=== PATIENT | male | born 1930 | race Asian ===

== ENCOUNTER 2016-07-02 06:36 | Inpatient (IN) | payer OTHER, MEDICAID ==
[2016-07-02 08:03] VITALS: BP 179/73
[2016-07-02] MEDS ORDERED: Pneumococcal Vaccine 0.5 mL Vial IM ONE (08:51)
[2016-07-02] MEDS ORDERED: Hydrocodone/APAP 10 mg/325 mg Tab PO PRN (10:23)
[2016-07-02] MEDS ORDERED: Maalox 30 mL Cup PO PRN (10:23)
[2016-07-02] MEDS ORDERED: Hydrocodone/APAP 5mg/325mg Tab PO PRN (10:23)
[2016-07-02] MEDS ORDERED: Magnesium Hydroxide (MOM) 30 mL UDC PO PRN (10:23)
[2016-07-02 11:08] LABS: % BASOPHILS 0.2 % (0.0-2.0); % EOSINOPHILS 0.2 % (0.0-5.0); % LYMPHOCYTES 17.2 % (20.0-50.0); % MONOCYTES 2.1 % (2.0-10.0); % NEUTROPHILS 80.3 % (40.0-80.0); HEMATOCRIT 28.6 % (39.0-49.0); HEMOGLOBIN 9.2 gm/dL (12.6-17.4); MEAN CELL VOLUME 91.5 fl (80-99); MEAN CORPUSCULAR HEMOGLOBIN 29.5 pg (27.0-31.0); MEAN CORPUSCULAR HGB CONC 32.3 pg (28.0-36.0); PLATELET COUNT 174 Th/cmm (150-400); RED BLOOD COUNT 3.13 Mil/cmm (3.80-5.80); RED CELL DISTRIBUTION WIDTH 13.9 % (11.5-20.0); WHITE BLOOD COUNT 4.9 Th/cmm (4.8-10.8)
[2016-07-02 11:24] LABS: TROP I 0.02 ng/mL (0.01-0.05)
[2016-07-02 11:25] LABS: ALB/GLOB RATIO 1.1 (1.0-1.8); ALKALINE PHOSPHATASE 59 U/L (34-104); ANION GAP 9.9 (7.0-16.0); BILIRUBIN,TOTAL 0.5 mg/dL (0.3-1.0); BUN - UREA NITROGEN 34 mg/dL (7-25); BUN/CREATININE RATIO 13.6; CALCIUM SERUM 9.2 mg/dL (8.6-10.3); CARBON DIOXIDE 22.2 mEq/L (21.0-31.0); CHLORIDE 107 mEq/L (98-107); CREATININE - SERUM 2.5 mg/dL (0.7-1.3); GLUCOSE 141 mg/dL (70-105); POTASSIUM SERUM 4.1 mEq/L (3.5-5.1); SGOT 23 U/L (13-39); SGPT/ALT 19 U/L (7-52); SODIUM SERUM 135 mEq/L (136-145)
[2016-07-02 11:39] LABS: INR 1.32 (0.5-1.4); PROTHROMBIN TIME (TEST) 13.9 SECONDS (9.5-11.5)
--- NOTE | 2016-07-02 12:34 | Diagnostic Imaging Report ---
Renal ultrasound HISTORY: Acute renal failure. COMPARISON: None Technique: Sonography of the kidneys and urinary bladder was performed in multiple planes. FINDINGS: Exam is limited due to body habitus. The right kidney measures 9.9 x 5.1 cm. A 2.6 cm mid pole renal cyst is noted. No hydronephrosis. The left kidney measures 9.0 x 5.0 cm. Two Renal cysts are noted the largest at the upper pole measuring 2.1 cm. No hydronephrosis. There is mild increased echogenicity of both kidneys. Elevated postvoid residual bladder volume of 226 mL cyst is noted. The urinary bladder wall is borderline prominent measuring 4 mm. The prostate gland measures 4.9 x 3.7 x 3.8 cm. IMPRESSION: No evidence of hydronephrosis. Bilateral renal cysts. Mild increased echogenicity of both kidneys which may reflect underlying medical renal disease. Elevated postvoid residual bladder volume of 226 mL, clinical correlation recommended Mild generalized prominence of the urinary bladder wall. Please correlate with clinical findings. Mildly prominent prostate gland. Please correlate with clinical findings and PSA levels.
--- NOTE | 2016-07-02 12:51 | History & Physical ---
CHIEF COMPLAINT: Headache. HISTORY OF PRESENT ILLNESS: The patient is an 85-year-old male who presents to the ER at [facility] in [place]. Per patient's daughter, the patient started having headache yesterday and is unsure. The patient stated he has headaches since March. His pain is located at the back of his head . [place] PAST MEDICAL HISTORY: Dyslipidemia and hypertension. PAST SURGICAL HISTORY: Negative. ALLERGIES: No known allergies. REVIEW OF SYSTEMS: See history of present illness. PHYSICAL EXAMINATION: GENERAL: The patient is awake and oriented to person, place and time. The patient appeared well developed and well nourished. HEENT: Normocephalic, atraumatic. Extraocular movements intact. Pupils reactive to light. Oropharynx is clear. NECK: Supple. No thyromegaly. No lymphadenopathy. CARDIOVASCULAR: S1, S2. No murmurs, rubs, gallops. RESPIRATORY: Clear. No wheezes or rhonchi. GASTROINTESTINAL: Abdomen soft, nontender, nondistended. Bowel sounds positive. GENITOURINARY: No CVA tenderness. No suprapubic tenderness. BACK: No midline tenderness. EXTREMITIES: Equal pulses bilaterally. No cyanosis, clubbing. SKIN: Negative. PSYCHIATRIC: Negative. NEUROLOGIC: Cranial nerves 2-12 intact. Extraocular movements intact. Sensation intact. Neurovascular intact. Gross muscle strength in bilateral upper extremities is normal. LABORATORY DATA: Performed at [facility] as follows: CBC: WBC of 8.2, hemoglobin 10.1, hematocrit per labs, platelet count of 168. Chemistry: Sodium 132, potassium 4.3, chloride 102, bicarbonate 22, anion gap of 6, BUN 31, creatinine 2.52, GFR 25, glucose 99. CT head performed at [facility] showed no intracranial hemorrhage, mass or mass effect. No extraaxial or intraaxial fluid collection present. 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 There is no CT evidence of acute cortical infarct. The patient had lumbar puncture performed at [facility], which was unremarkable. IMPRESSION: 1. Altered mental status. 2. Acute renal failure. 3. Hypertension. 4. Dyslipidemia. 5. Chronic anticoagulation therapy. 6. Anemia. PLAN: The patient admitted to telemetry unit, seen by Dr. Khanh Naylor. We will obtain labs and consultation needed. [facility]# [id number] MTDNathan
[2016-07-02 13:57] LABS: C-REACTIVE PROTEIN < 0.2 mg/dL (0.0-0.9)
[2016-07-02] MEDS: Ferrous Sulfate 325 MG TAB PO SCH (16:17)
--- NOTE | 2016-07-02 16:58 | Consultation ---
REFERRING PHYSICIAN: Dr. Khanh Naylor. HISTORY OF PRESENT ILLNESS: This patient is seen on courtesy of Dr. Khanh Naylor as the patient is coming with bradycardia and cardiac murmur history and also having uncontrolled hypertension. According to the history obtained from the chart and from the patient, the patient was admitted to [facility] with worsening of the headache. The patient states that he has been having headache since March, but it was supposed to be off and on and now on the day of admission, it got worse. Denies of any blurring of vision. No nausea or vomiting. No weakness on any part of the body. He said that headache starts from the back and it spreads all over both sides of the head. He denies of any chest pain, cold sweats, loss of consciousness. No fever, chills or rigors. No recent history of upper respiratory tract infection or flu. He is in [place] and the further workup was initiated, which consists of the CT head, which did not show any bleed, but there are some changes present could be expected for age. PAST MEDICAL HISTORY: History of hypertension and dyslipidemia. PAST SURGICAL HISTORY: Nothing contributory. REVIEW OF SYSTEMS: Nothing contributory except as mentioned above from cardiac point of view. ALLERGIES: No known drug allergies. MEDICATIONS: I do not have the list of his home medications, I am not sure, cannot get any history of that. However, it is most likely per [facility] record that he has been on amlodipine 5 mg p.o. daily, atenolol 100 mg p.o. daily, lisinopril 30 mg, I do not think this is 30 mg, should be 20 or 40 mg, allopurinol 100 mg daily and warfarin 5 mg daily. It is not very clear why he takes warfarin. PERSONAL HISTORY: He is nonsmoker, nonalcoholic, no drug abuse. PHYSICAL EXAMINATION: GENERAL: The patient is an 85-year-old male, who is not in acute distress, not a good historian with conversation. There is not much alertness in the orientation. VITAL SIGNS: Reported as blood pressure is uncontrolled into 172/62 to 179/73 range, temperature is normal, heart rate is 59 and respiratory rate is 18, O2 sat is 97%. HEENT: Normal. NECK: Supple. JVP is flat. Thyroid not palpable. The carotids are equally palpable. No bruit. Trachea is central. LUNGS: Bilateral good air entry and clear. No rhonchi. CARDIOVASCULAR: PMI not palpable. Heart sounds, S1 is soft and S2 is soft. There is a systolic ejection murmur, which is 3/6 grade in aortic area conducting towards the carotids, towards apex. There is diastolic soft murmur is present and best audible in aortic area in left sternal border. There is hollow systolic murmur is present in mitral area conducting towards the axilla. No rub is appreciated. ABDOMEN: Normal. CENTRAL NERVOUS SYSTEM: Grossly normal. EXTREMITIES: No edema. Peripheral pulses are slightly decreased, but equal bilaterally, looks like 1+. EKG shows sinus bradycardia in 50s. No acute changes present. There is acute most likely rather poor R wave progress or Q waves in the lead III and aVF suggestive of old inferior infarction. IMPRESSION: Bradycardia most likely iatrogenic or secondary to increasing intracranial pressure to be evaluated further, although LP was normal and also there is no other abnormal finding of the CT head to suggest any acute infarction or bleed. Possible transient ischemic attack. Hypertension, uncontrolled, hypertensive heart disease, cardiac murmur, suggestive of aortic stenosis and aortic regurgitation and also mitral regurgitation, possible cardiomyopathy most likely diastolic as well as systolic dysfunction. 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 Cardiac murmurs suggestive of aortic stenosis with regurgitation,mitral valve regurgitation. Possible pulmonary hypertension. Has dyslipidemia, hypertension, hypertensive heart disease, altered level of consciousness, headache, etiology undetermined at this time and has mild azotemia, renal as well as prerenal type and he has mild anemia. His other medical problem as mentioned above. PLAN: From cardiac point of view, we would like to keep his heart rate normal range as well as bring the blood pressure under control. In view of that, I would like to reduce the atenolol to 50 mg and increase amlodipine to 10 mg to control hypertension. Also, we will add other therapy, which is not going to cause conduction abnormality or bradycardia like hydralazine and will be careful with KATHERINE inhibitors in view of having azotemia, increased BUN and creatinine. We will get fluid balance. This patient may be dehydrated and causing the azotemia. We will get IV fluids and follow closely for fluid overload or CHF. Further workup and management from cardiac point of view as needed. We will get the echocardiogram and serial EKG and also like to run troponin to make sure there is no coronary event recently or on this admission. Thank you very much Dr. Garcia for your kind referral and I will follow along with you during his acute cardiac problem. JOB# [id number] MTDD
--- NOTE | 2016-07-03 02:40 | Admit Criteria Form ---
Admit Criteria Forms - Admit Criteria Diagnosis: MENTAL STATUS CHANGE Clinical Indications for Inpatient Care (Place 'X' for any and all applicable criteria): Ongoing inpatient care may be needed for ANY ONE of the following(1)(2)(3)(5)(6) : [ ]I. Suspected serious etiology (eg, medical disorder, LOG ROLLER event) of mental status change [ ]II. Danger to self or others not manageable at lower level of care [ ]III. Grave disability (eg, inability to perform self care necessary at lower level of care) [ ]IV. Agitation or inappropriate behavior interfering with care for primary condition (eg, attempting to discontinue lines or drains prematurely, unable to cooperate with respiratory care) [ ]V. Delirium [A] [D][E] as described by ANY ONE of the following(26): [ ]a) Delirium due to alcohol or sedative [F] withdrawal [ ]b) Delirium of uncertain etiology that has not responded to appropriate empiric treatment [ ]c) Delirium that prevents performance of a life-sustaining function (eg, feeding or hydrating oneself) [x ]. General contraindications and/or Inappropriate clinical situations for Observational Care in patients with Mental Status Change, when ANY ONE of the following is required: [x ]a) Prediction of prolongation of LOS based on ANY ONE of the following may be considered as a contraindication for observational care 2, 3, 4, 5, 6, 7, 8, 9, 10, 11 [x ]i) Age > 65 yrs. [ ]ii) Patient arriving by ambulance [ ]iii) Patient with high acuity [ ]iv) Patient requiring vital sign monitoring [ ]v) Patient on IV medication [ ]b) Systolic blood pressures 180mmHg 3,12 [ ]c) Patient with altered mental status including delirium and other alteration of consciousness, (3) [ ]d) Patient whose discharge disposition will be to a retirement home or rehabilitation home should not be managed in Emergency Department Observation Unit. CMS rule requires 3 days hospital stay before such placement.3,13 [ ]e) Patient with failure to thrive due to broad array of etiologies 3,16,17 [ ]f) Inability to ambulate 3,14 Extended stay beyond goal length of stay for the primary condition may be needed until ALL of the following are present(3)(5): [ ]a) Underlying medical etiology of mental status change is absent, or has been established and adequately treated [ ]b) Danger to self or others is absent or manageable at lower level of care. [ ]c) Behavior crisis management, including physical or chemical restraints, is not required or available at lower level of car [ ]d) Substance or alcohol withdrawal is absent or manageable at lower level of care. [ ]e) Behavioral symptoms (eg, agitation, somnolence, inappropriate behavior) are absent, or are manageable at lower level of care. The original [facility] content created by [facility] has been revised. The portions of the content which have been revised are identified through the use of italic text or in bold, and [facility] has neither reviewed nor approved the modified material. All other unmodified content is copyright [facility]. Please see references footnoted in the original [facility] edition 2016 Admit Criteria Met?: Yes
--- NOTE | 2016-07-03 05:09 | Consultation ---
ATTENDING PHYSICIAN: Dr. Jose Naylor. CERTIFIED CODER: Dr. Rasta Steele. REASON FOR CONSULTATION: Worsening kidney function, electrolyte imbalance and fluid management. HISTORY OF PRESENT ILLNESS: This is an 85-year-old Pol[place] ([place]), male with past medical history of hypertension who was transferred from [facility] to [facility] for further management of headaches. Two months prior to admission, the patient developed intermittent bilateral headaches originating from occipital to frontal area. This would last several hours up to 24 hours. He described the headaches as pressure like. He had no aura (photo/phonophobia, nausea and vomiting), earache, eye pain, toothache, sinus congestion nor fever or chills. A few hours prior to admission, he could not tolerate his headaches. He was then brought to [facility] Room. White count was 8.2. CT scan of the head was negative. However, his blood pressure was 167/72. He was then transferred to [facility]. PAST MEDICAL HISTORY: 1. Essential hypertension. 2. Dyslipidemia. 3. Chronic headaches. 4. Gout. CURRENT MEDICATIONS: Acetaminophen, allopurinol, atenolol, hydralazine, hydrocodone/APAP, lisinopril, lorazepam, magnesium hydroxide, ondansetron, warfarin and amlodipine. ALLERGIES: No known drug allergies. SOCIAL HISTORY: Denied any history of alcohol or tobacco use. He is a retired teacher of middle and elementary school. FAMILY HISTORY: Noncontributory to present illness. REVIEW OF SYSTEMS: GENERAL: I was not able to obtain directly from the patient because of language problem. However, based on transfer notes as well as interview of the patient, his appetite had been fair. No fever and no chills. HEENT: He did have pressure-like headaches originating from the occipital to the frontal area. Vision has been good. No dizziness. CARDIORESPIRATORY: He has a history of hypertension. At this point, no chest pain, palpitations, diaphoresis or cough. GASTROINTESTINAL: No nausea and vomiting, abdominal pain or cramping, hematemesis, melena, hematochezia and no diarrhea. ENDOCRINE: No history of diabetes as well as thyroid abnormalities. He has dyslipidemia. GENITOURINARY: He comes in now with acute kidney injury. Denied any dysuria or hematuria or retention. HEMATOLOGIC: He has anemia, more likely of chronic disease. NEUROPSYCH: No syncopal episode nor seizure activity and no neuropathy. MUSCULOSKELETAL: He has a history of gout. PHYSICAL EXAMINATION: GENERAL: The patient is awake, not in any distress, comfortable. VITAL SIGNS: Blood pressure is 172/62, pulse 59 and temperature 97.7 degrees. SKIN: Poor turgor, warm, no rash. HEENT: Head: Normocephalic and atraumatic. EYES: Extraocular muscles intact. Pupils equal, round and reactive to light and accommodates. Anicteric sclerae. Pale conjunctivae. Nose: Midline nasal septum. Mouth: Dry mucosa with adequate dentition. NECK: Supple. No adenopathy, no thyromegaly and no bruits. Trachea palpated in the midline. CHEST AND CVS: S1 and S2. No rub, murmur nor gallop appreciated. Point of maximal impulse is in the fifth intercostal space, left midclavicular line. No abdominal or femoral bruits appreciated. LUNGS: Equal expansion. No use of accessory muscles. No supraclavicular retractions. Decreased breath sounds, but clear to auscultation without any wheeze. ABDOMEN: Flat and soft. Positive for bowel sounds. No bruits either diastolic or systolic. GENITOURINARY: Normal appearing male genitalia. LYMPH NODES: No palpable bladder, no tenderness to the hypogastric area. NEUROLOGIC: The patient is awake, able to converse; however, he has difficulty following my neuro commands, so I was not able to pursue further my neuro exam. EXTREMITIES: He has I would say some mild bipedal edema, but no cyanosis nor clubbing. LABORATORY DATA: Did reveal sodium 135, potassium 4.1, chloride 102, bicarbonate 22, BUN 34, creatinine at 2.5, glucose 141, calcium 9.2 and albumin 3.4. White count 4.9, hemoglobin 9.3, hematocrit 28.6, polys 80.3% and platelets 174. IMPRESSION: 1. Acute kidney injury and MDRD GFR of 26.4 mL per minute. For acute kidney injury, the patient may have developed prerenal azotemia initially. His appetite seems to have decreased and he was not able to replenish both sensible and insensible fluid losses. He admitted to being thirsty. Physical exam revealed poor skin turgor with dry oral mucosa. As mentioned, these factors could lead to dehydration and lead to dehydration with progressive decrease in effective circulating volume. His prerenal azotemia eventually progressed to acute tubular injury. His renal ultrasound revealed an increase in residual volume suggestive of some form of acute obstructive uropathy. 2. Chronic pressure like headaches positive tension headaches. His headaches would last for several hours up to 1 day, but not for several days. He has no ongoing auras. 3. Essential hypertension. 4. Dyslipidemia. 5. Gout. 6. Anemia of chronic disease. 7. BPH. 8. Malnutrition. PLAN: 1. Gentle hydration. 2. Urine sodium, eosinophils and creatinine. 3. Urine microalbumin to creatinine ratio. 4. Follow up electrolytes as well as CBC. 5. Ferrous sulfate. 6. Agree with hydralazine due to elevated blood pressure. 7. Consider MRI if headaches persist. Thank you, Dr. Naylor for this consult. I will follow the patient closely with you. JOB# [id number]
[2016-07-03 07:18] LABS: INR 1.52 (0.5-1.4); PROTHROMBIN TIME (TEST) 16.1 SECONDS (9.5-11.5)
[2016-07-03 07:27] LABS: % BASOPHILS 0.2 % (0.0-2.0); % EOSINOPHILS 1.3 % (0.0-5.0); % LYMPHOCYTES 20.1 % (20.0-50.0); % MONOCYTES 11.7 % (2.0-10.0); % NEUTROPHILS 66.7 % (40.0-80.0); HEMOGLOBIN 8.6 gm/dL (12.6-17.4); MEAN CELL VOLUME 91.5 fl (80-99); MEAN CORPUSCULAR HEMOGLOBIN 30.6 pg (27.0-31.0); MEAN CORPUSCULAR HGB CONC 33.5 pg (28.0-36.0); MEAN PLATELET VOLUME 8.7 fl; PLATELET COUNT 158 Th/cmm (150-400); RED BLOOD COUNT 2.79 Mil/cmm (3.80-5.80)
[2016-07-03 07:31] LABS: ANION GAP 8.4 (7.0-16.0); BUN - UREA NITROGEN 44 mg/dL (7-25); BUN/CREATININE RATIO 15.7; CARBON DIOXIDE 22.3 mEq/L (21.0-31.0); CHLORIDE 109 mEq/L (98-107); CHOLESTEROL 112 mg/dL (<200); CREATININE - SERUM 2.8 mg/dL (0.7-1.3); GLUCOSE 103 mg/dL (70-105); HEMATOCRIT 25.5 % (39.0-49.0); PHOSPHOROUS 3.6 mg/dL (2.5-5.0); POTASSIUM SERUM 3.7 mEq/L (3.5-5.1); SODIUM SERUM 136 mEq/L (136-145); TRIGLYCERIDES 60 mg/dL (<150); URIC ACID 7.1 mg/dL (4.4-7.6); WHITE BLOOD COUNT 7.5 Th/cmm (4.8-10.8)
[2016-07-03] MEDS: Ferrous Sulfate 325 MG TAB PO SCH ×2 (08:40→16:58)
[2016-07-03 12:18] LABS: MICROALBUMIN RANDOM RUINE 181.3 ug/mL (Not Estab.)
[2016-07-03] MEDS ORDERED: Sodium Chloride 0.45% 1,000 ML IV SCH (15:30)
--- NOTE | 2016-07-03 15:56 | Cardiology ---
PROCEDURE: Echocardiogram. REFERRING PHYSICIAN: Jose Naylor M.D. M-MODE FINDINGS: Are as follows. Aortic root dimension in end-diastole is 3.4 cm. Aortic valve systolic separation is 0.85 cm. Left atrial in end-systole is 3.5 cm. EP septal separation is 0.73 cm. Mitral valve E/A ratio is 0.8. The LV dimension in end-diastole is 5.97 cm and in end-systole 3.5 cm. Interventricular septal thickness in end-diastole is 1.55 cm and LV posterior wall thickness in end-diastole is 1.3 cm. FS is 41% and ejection fraction is 71%. DOPPLER MEASUREMENTS: Left ventricular outflow tract Vmax is 1.6 meter per second. Aortic valve Vmax in end-systole is 3.4 meter per second. Aortic valve pressure gradient 48.2 mmHg. Aortic regurgitation velocity is 564 meter per second and aortic valve area by Vmax is 1.7 cm. Right ventricular systolic pressure is 42.4 mmHg. M-mode and 2D show that LV dimension and second wall motion are normal. No pericardial effusion is present. Aortic valve is calcified with decreased systolic opening. Mitral valve annulus is calcified and mitral valve leaflets are normal in thickness and motion in end diastole and end systole. Tricuspid valve is normal. Pulmonic valve was not well visualized, but looks normal. Doppler measurements and carotid Doppler measurements as above. CONCLUSION: 1. LV dimension and second wall motion are normal. Ejection fraction is 71%. 2. Severe aortic stenosis with aortic regurgitation. 3. Left ventricular hypertrophy present with grade 1 diastolic dysfunction. 4. Mild pulmonary hypertension. 5. Moderate aortic regurgitation. 6. Mild mitral as well as tricuspid regurgitation. 7. Mitral valve annulus is calcified. 8. Otherwise findings as above. JOB# [id number] UMANG
--- NOTE | 2016-07-04 08:46 | Progress Notes ---
I have seen the patient and explained the echocardiogram report that has a severe aortic stenosis and aortic regurgitation, also has mitral regurgitation with the dilated LV with preserved systolic function, has grade 1 diastolic dysfunction, also has mild pulmonary hypertension. The patient is coming with dilated LV and severe aortic stenosis and also has been admitted with the TIA. Has been getting symptoms of feeling tired and short of breath easily and some dizziness with activities suggestive secondary to severe aortic stenosis. I suggest that the patient needs right and left heart catheterization and evaluation of the coronary arteries as well as evaluation of the aortic and mitral valve. The need was explained and indication was explained to them. Also, I explained the procedure and its risks which are not limited to the bleeding, hematoma, requiring blood transfusions, palpitations, cardiac dysrhythmia, drug allergies causing some allergic reaction. Also TIA or stroke secondary to embolization or embolization to other part requiring the emergency surgical intervention, dissection of the arteries, cardiac dysrhythmia and causing cardiac arrest, sudden . Also renal failure as the patient has underlying diabetic nephropathy with azotemia, which can get worse and end up with dialysis for the life. The dissection or stenosis of the artery causing ischemia of the limb and therefore requiring the surgical intervention. The possibilities are less than 1%. They understood completely and all the questions were answered. I agree for right and left heart cath and evaluation of aortic stenosis and coronary artery disease. Discussed the case with the correctional case records supervisor and [facility] A cardiac cath to be done at 12 p.m. tomorrow on 07/04/2016. JOB# [id number] UMANG
--- NOTE | 2016-07-05 04:14 | Progress Notes ---
SUBJECTIVE: The patient is awake and alert. The patient is on room air. OBJECTIVE: VITAL SIGNS: Temperature 97.5, pulse 87, blood pressure 141/61, respiratory rate 20, and O2 sat 97% on room air. CARDIOVASCULAR: S1 and S2. RESPIRATORY: Clear. GASTROINTESTINAL: Soft. Positive bowel sounds. LABORATORY DATA: Hematology: WBC is 7.5, hemoglobin 8.6, hematocrit per labs, platelet count of 158,000, 11% monocytes. PT 16.1. INR 1.52. Chemistry: Sodium 136, potassium 4.7, chloride per labs, bicarb 22, anion gap 3.4, BUN 44, and creatinine 2.8. GFR unavailable. The uric acid is 7.1, calcium 9.0, phosphorus 3.6, magnesium 2.0, troponin 0.02. Lipid panel: Triglycerides 60, Cholesterol 112, LDL 72, and HDL 31. ASSESSMENT: 1. Aortic stenosis, severe. 2. Aortic regurgitation. 3. Mitral regurgitation. 4. Altered mental status. 5. Acute kidney injury. 6. Hypertension. 7. Dyslipidemia. 8. Chronic anticoagulation therapy. 9. Anemia. PLAN: Continue current medication and treatment. Per recommendation from Cardiology, the patient needs transfer to [facility] for cardiac catheterization due to the patient's severe aortic stenosis. Further recommendation per consultation. JOB# [id number] MTDNathan
== END 2016-07-03 18:30 | disposition short-term general hospital (02) | DRG 682 ==
LOC: MSI 06:36 → TELE 19:02
PROVIDERS: ADMIT Preventive Medicine Preventive Medicine/Occupational Environmental Medicine; ATTEND Preventive Medicine Preventive Medicine/Occupational Environmental Medicine
DX: N17.9 Acute kidney failure, unspecified (principal); G93.41 Metabolic encephalopathy; E46 Unspecified protein-calorie malnutrition; I11.9 Hypertensive heart disease without heart failure; I38 Endocarditis, valve unspecified; E11.21 Type 2 diabetes mellitus with diabetic nephropathy; E78.5 Hyperlipidemia, unspecified; R00.1 Bradycardia, unspecified; G44.209 Tension-type headache, unspecified, not intractable; M10.9 Gout, unspecified; D63.8 Anemia in other chronic diseases classified elsewhere; N40.0 Benign prostatic hyperplasia without lower urinary tract symptoms; I08.3 Combined rheumatic disorders of mitral, aortic and tricuspid valves; I27.2 Other secondary pulmonary hypertension; Z68.28 Body mass index [BMI] 28.0-28.9, adult; Z79.01 Long term (current) use of anticoagulants
CPT/HCPCS: 36415-UA; 76770-TC; 80048-TC; 80053-TC; 80061-TC; 82043-90; 82550-TC; 82570-TC; 83735-TC; 84100-TC; 84484-TC; 84550-TC; 85025-TC; 85610-TC; 85652-TC; 86141-TC; 93005; 97530; J7042; X3904; Z7610